=== PATIENT | female | born 1990 | race Two or more races ===

== ENCOUNTER 2023-03-15 08:11 | Emergency (ER) | payer OTHER ==
[~2023-03-15] VITALS: Ht 152.4 cm; Wt 70.3 kg
[2023-03-15 09:39] LABS: HEMATOCRIT 38.8 % (36.0-45.00); HEMOGLOBIN 13.1 g/dL (12.0-15.00); MEAN CELL VOLUME 84.1 fL (80.00-100.00); MEAN CORPUSCULAR HEMOGLOBIN 28.4 pg (27.00-32.0); MEAN CORPUSCULAR HGB CONC 33.8 g/dl (32.0-36.0); PLATELET COUNT 335 K/uL (150-450); RED BLOOD COUNT 4.61 M/uL (4.00-6.00); RED CELL DISTRIBUTION WIDTH 12.8 % (11.5-14.5)
[2023-03-15 09:40] LABS: PH,URINE 6.5 (5.0-8.0); URINE APPEARANCE Cloudy; URINE BILIRRUBIN Negative (NEGATIVE); URINE BLOOD Large; URINE COLOR Yellow; URINE GLUCOSE Negative (NEGATIVE); URINE LEUKOCYTE Moderate; URINE NITRATE Negative; URINE PROTEIN Negative (NEGATIVE); URINE UROBILINOGEN 0.2 E.U./dl
[2023-03-15 09:42] LABS: URINE BACTERIA 3580.9 uL (0.0-1933); URINE EPITHELIAL CELLS 55.5 uL (0.0-38.8); URINE RBC 332.8 uL (0.0-20.8); URINE WBC 33.7 uL (0.0-23.2)
[2023-03-15 10:45] LABS: BILIRUBIN TOTAL 0.55 mg/dL (0.3-1.2); BILIRUBIN,CONJUGATED 0.17 mg/dL (0.0-0.2); BILIRUBIN,UNCONJUGATED 0.38 mg/dL (0.0-0.6); TOTAL PROTEIN 7.3 gm/dL (6.4-8.2)
[2023-03-15 10:55] LABS: URINE YEAST NEGATIVE /hpf
== END 2023-03-15 12:55 | disposition home or self-care (01) ==
LOC: ER 08:12
PROVIDERS: Emergency Medicine
DX: N39.0 Urinary tract infection, site not specified (principal); Z88.8 Allergy status to other drugs, medicaments and biological substances

== ENCOUNTER 2024-10-06 11:56 | Emergency (ER) | payer OTHER ==
[~2024-10-06] VITALS: Ht 152.4 cm; Wt 72.6 kg
[2024-10-06 12:30] VITALS: BP 116/76; O2SAT 100
[2024-10-06] MEDS ORDERED: 0.9 % SODIUM CHLORIDE 1,000 ML IV ONE (13:15)
[2024-10-06] MEDS ORDERED: LEVALBUTEROL HCL 1.25 MG/3 ML SOLUTION IH SCH (13:15)
[2024-10-06] MEDS ORDERED: IPRATROPIUM BROMIDE 0.5 MG/2.5 ML AMPUL.NEB IH SCH (13:15)
[2024-10-06] MEDS ORDERED: MAGNESIUM SULFATE IN WATER 2 GM/50 ML PIGGYBAG IV ONE (13:15)
[2024-10-06 14:10] LABS: BASO % 0.3 % (0.1-1.2); EOS # 0.02 (0.04-0.54); EOS % 0.2 % (0.7-7.0); LYMPH # 1.67 (1.18-3.74); LYMPH % 16.8 % (19.3-53.1); MEAN PLATELET VOLUME 9.50 fl (9.4-12.4); MONO # 0.60 (0.24-0.82); MONO % 6.0 % (4.7-12.5); NEUT # 7.57 (1.56-6.13); NEUT % 76.4 % (34.0-71.1); RED CELL DISTRIBUTION WIDTH 13.3 % (11.6-14.4)
[2024-10-06 14:32] LABS: ALT/SGPT 31 U/L (12-78); AST/SGOT 15 U/L (15-37); BILIRUBIN TOTAL 0.35 mg/dL (0.3-1.2); BUN CREA RATIO 21 (7.0-25.0); CREATININE SERUM 0.67 mg/dL (0.55-1.02); GFR 102.00; GLOBULINA 4.1 G/DL (2.4-3.5); GLUCOSE FASTING 86 mg/dL (65-100); OSMOLALITY SERUM 281 MOSM/KG (275-295)
[2024-10-06 14:35] LABS: HCG QUANTITATIVE < 1 mUI/mL (1-3)
[2024-10-06 14:36] LABS: ABG PH 7.444 (7.35-7.45); ABG PO2 106.1 mmHg (80-100); BICARBONATE 19.0 mmol/l (23-25); o2 21 %
[2024-10-06] MEDS ORDERED: METHYLPREDNISOLONE SOD SUCC 125 MG VIAL IV ONE (15:00)
[2024-10-06] MEDS ORDERED: LEVALBUTER0.63 MG/3 IH (15:30)
[2024-10-06] MEDS ORDERED: MEDROLPACK PO (15:30)
[2024-10-06] MEDS ORDERED: PEPCID AC20 MG PO (15:30)
== END 2024-10-06 16:04 | disposition home or self-care (01) ==
LOC: ER 11:56
PROVIDERS: General Practice
DX: T59.811A Toxic effect of smoke, accidental (unintentional), initial encounter (principal); Y92.89 Other specified places as the place of occurrence of the external cause; Z88.8 Allergy status to other drugs, medicaments and biological substances; Z87.09 Personal history of other diseases of the respiratory system